=== PATIENT | male | born 1940 | race Caucasian/White ===

== ENCOUNTER 2024-11-24 07:30 | Day surgery (SDC) | payer MEDICARE, OTHER, SELFPAY ==
[2024-11-23 10:25] VITALS: BMI 23.1
[2024-11-24] VITALS (27 sets, daily range): BP systolic 76–146; BP diastolic 43–115
--- NOTE | 2024-11-24 14:31 | ITS.CL.ABL ---
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
Ablation
Procedure Report:
AFIB / A flutter ablation:
Mr. Diaz is a very pleasant 84 yr old gentleman with medical history significant for symptomatic persistent atrial fibrillation and atrial flutter is here in the EP lab for atrial fibrillation / flutter ablation
Date of Procedure:
11/24/2024
Indications:
Symptomatic persistent atrial fibrillation / atrial flutter
Pre-Operative Diagnosis:
Persistent atrial fibrillation / atrial flutter
Post-Operative Diagnosis:
Persistent atrial fibrillation / atrial flutter
Procedure Performed:
Atrial fibrillation ablation with wide area circumferential ablation (WACA) approach for pulmonary vein isolation
Posterior wall isolation
Roof dependent atrial flutter ablation.
Atrial flutter ablation with cavo-tricuspid isthmus line block formation
Performing Physician:
Vandana Mlutani MD
Assistants:
EP staff
Anesthesia:
See anesthesia records
Detailed Description of the Procedure:
Written informed consent was obtained from the patient after a full explanation of the risks and benefits of the procedure including the risks of sedation and anesthesia.
The patient was brought to the electrophysiology laboratory in stable condition in fasting state. Continuous electrocardiographic and hemodynamic monitoring was initiated.
The initial rhythm was atrial flutter.
The procedure site was meticulously prepared with surgical scrub and allowed to dry with no pooling. Sterile draping was applied to cover the procedure site. The image intensifier was draped with sterile bag and positioned over the patient. After
infusion of local anesthetic, vascular access was obtained under ultrasound guidance and sheaths were placed over guide wire as detailed below.
The images of the ultrasound of the femoral vessels were stored in patient chart.
Sheath and Catheter Placement:
In the right femoral vein, an 8-Albanian sheath was placed under ultrasound guidance for use during the ablation procedure. And mapping catheter was intermittently placed in the high right atrium, right ventricle, left atrium and left ventricle. In
the left femoral vein, a 9-Fr long sheath was placed for use during intracardiac echo procedure.
The sheaths were upgraded as needed during the case. Intracardiac catheters were positioned using direct fluoroscopic guidance.� ICE catheter was placed in RA. The following catheters / sheaths were placed
Sheaths:
��������� Agilis sheath in right femoral vein upgraded from 8Fr in right femoral vein
��������� 9Fr in left femoral vein
��������� 7Fr in right femoral vein
Catheters:
��������� The Affera Sphere 9 catheter -bidirectional D/F� - at locations of HRA, RV, LA and LV.
��������� ICE catheter -AccuNav -� at locations of RA, SVC, and RV.
��������� Bard decapolar catheter � RA and CS
Heparin was initiated after the access was obtained.
Intracardiac ECHO:
An 8-Albanian AcuNav intracardiac ECHO (ICE) probe was advanced through the 9-Albanian sheath in the left femoral vein into the right atrium under fluoroscopic and ICE ultrasound image guidance and a baseline ECHO study was performed. The left atrial
size was dilated. There was trace tricuspid regurgitation. The aortic valve was grossly normal. There was normal left ventricular size and function. There is a trace pericardial effusion. The JENNY has baseline low velocities. The pulmonary had good
flow identified.
During the procedure, ICE was used for monitoring of complications, guidance of trans-septal puncture, monitor the catheter position and tracking ablation lesions. No change in the pericardial space noted throughout the procedure.
Electroanatomic mapping of the right atrium:
A J-tipped guidewire was advanced through the 8-Albanian sheath in the right femoral vein into the superior vena cava under fluoroscopic and ICE guidance. The 8-Albanian sheath was exchanged for an Agilis sheath which was advanced into the superior vena
cava.
Using the Sphere 9 Affera catheter advanced through Agilis sheath into the right atrium, an electroanatomic map (EAM) of the right atrium was created using the [employer]� mapping system with [employer]-1 software mapping system.
There was borderline long HV conduction noted at baseline at 68 ms.
Ablation # 1: Typical Atrial Flutter Ablation:
The flutter was mapped and was noted concentric in the CS. The RA was mapped in atrial flutter that showed typical counter clock cardenas CTI dependent atrial flutter.
The CTI ablation was done using radiofrequency with Affera sphere -9 ablation, open irrigation, force-sensing bidirectional ablation catheter in the cavotricuspid isthmus from the tricuspid annulus to the IVC ridge. �Once the ablation catheter reach
near the IVC, the ablation energy was changed to pulsefield.
��������������� -Bidirectional block was confirmed across the CTI line with differential pacing.
��������������� -Double potentials were spaced greater than 98 msec apart.
��������������� -The conduction time across the CTI line from proximal CS pacing was 158 msec.
��������������� -EAM of the right atrium was obtained with coronary sinus pacing and showed a line of block at the CTI.
��������������� -The time interval just lateral to the ablation lesions was 158 msec and the lateral wall was 112 msec
��������������� - All these maneuvers confirmed the block at the CTI line.
- Post ablation HV interval was unchanged at 45msec
Then attention was given to atrial fibrillation ablation.
Trans-septal Puncture:
Heparin was initiated and infused to maintain appropriate ACT. A J-tipped guidewire was advanced through into the superior vena cava under fluoroscopic and ICE guidance. The Agilis sheath was advanced into the superior vena cava. An Ac[employer]Cross
transseptal access system was utilized to perform the trans-septal puncture. The apparatus was withdrawn until it was in contact with the fossa ovalis. The position was adjusted based on fluoroscopy and ultrasound images from ICE. Under
fluoroscopic, hemodynamic and ICE ultrasound guidance, left atrium was cannulated by advancing the needle. Once atrial septum was cannulated, the needle was pulled back and the guide wire was advanced through the needle into the left atrium. The
guide wire was advanced into the left superior pulmonary vein. Both the sheath and the dilator was advanced into the left atrium. The dilator with the needle was withdrawn. Blood was aspirated from the Agilis sheath and arterial blood confirmed. The
sheath was flushed. Saline injection noted into the left atrium on ICE. The waveform of the LA pressure was recorded. The mapping catheter was advanced in the Agilis sheath into the left pulmonary vein.
Of note, the atrial septum was quite thick and fibrous making the sheath delivery to the LA quite challenging.
3D Electroanatomic Mapping:
Using the Sphere 9 Affera catheter advanced through Agilis sheath into the left atrium, an electroanatomic map (EAM) of the left atrium was created using [employer]� mapping system with Connected software. The map was used for localization of catheter
position and tacking of ablation lesions. The EAM of the left atrium showed a total of 4 PVs with two left and the two right sided pulmonary veins with all electrically connected to the body the LA. It showed scattered scar on the posterior wall of
the LA. The LA was severely dilated in size.
Following the EAM, preparation were made for ablation.
Ablation:
Ablation # 2: Pulmonary vein Isolation:
Pulsed field ablation was performed using an open irrigation, bidirectional, contact sensing, dual energy ablation catheter (Affera sphere -9) by completing the circumferential lesions around the left and right pulmonary veins achieving pulmonary
vein isolation.
Confirmation of the PVI and bidirectional block:
Following achievement of entrance block at the pulmonary veins, pacing from the Sphere 9 affera catheter in each of the four veins at 20 milliamps for 4 milliseconds showed entrance and exit block.
Ablation # 3: Roof line Formation:
There was a clear channel of electrical activity left in the posterior wall with multiple CFAE and AF areas on the roof and ablation in that area increased the risk of atrial flutter and decision was made to create a roof line to block a slow
conduction. A set of pulsed field ablations were placed on the roof line connecting the left superior pulmonary vein ablation lesions to the right superior pulmonary vein lesions rings.
Ablation # 3: Posterior wall isolation with the Box lesions set Formation:
There was a significant fractionation seen in the posterior wall and LA AF foci along with CFAE made it clear as the posterior wall is critical in maintaining the atrial fibrillation and the decision was made to isolate the posterior wall by
creating a �Box� lesions.
A set of Pulsed field ablations were placed on the floor line connecting the left inferior pulmonary vein ablation lesions to the right inferior pulmonary vein lesions rings.
The sphere 9 in the posterior wall showed entrance block and the pacing from the posterior wall showed no exit from the box lesions confirming the exit block.
Ablation # 4: Posterior wall ablation:
With the box lesion created and block confirmed, the decision was made to ablate the posterior wall severing epicardial connections and decision was made to create the Y ablation on the posterior wall.
A series of ablations were placed connecting the junction of left superior pulmonary vein and the roof line to the junction of right inferior pulmonary vein and the floor line ablating the ganglion plexi next to both antra.
EP study:
Sinus Node Function: The sinus node functions are within acceptable normal range.
Atrioventricular Isela Function: �Post ablation HV interval was unchanged at 68 msec
Procedure End
ICE study was done again that showed no epicardial accumulation. No complications noted.
Following the completion of the EP study, catheters were removed. Protamine 30 mg was given at the end of the procedure and ACT was checked repeatedly. The sheaths were removed and hemostasis achieved with VASCADE and manual compression after
acceptable ACT is achieved.
Left atrial Pressure:
Pre-Procedure: Mean LA pressure was 21mmHg
Post-Procedure: Mean LA pressure was 19mmHg
Post-Procedure: Mean RA pressure was 14mmHg
Fluoro Time:
3.8min / 6.7mGy
Estimated Blood loss:
<10 cc
Specimens Removed:
None.
Implants / Devices:
None
Urine output:
None
Packs / Drains/ Tubes:
None
Instrument / Sponge Count Correct:
Yes
Complications of the Procedure:
None
Condition of Patient at Time of Transfer:
Hemodynamically stable with no neurological or vascular compromise.
Summary:
��������� Successful atrial fibrillation ablation with circumferential bidirectional line of block at pulmonary venin antra (Pulmonary vein isolation), atrial flutter ablation with cavo-tricuspid isthmus line block formation, roof flutter line
creation, Posterior wall isolation.
Figures from the Procedure:
Figure 1: The electroanatomic mapping (EAM) of the left atrium with bipolar voltage (purple indicates normal electrical activity with red as no myocardial muscle electric activity indicating a line of block or scar.
--- NOTE | 2024-11-24 16:42 | W.PN.UPDATE ---
Update Note
Progress Note Update
84 WM s/p PVI (same day) He denies cp, sob, sam diet, voiding, amb w/o dizziness, BP on soft side post procedure improved with ambulation MAP >65, EKG SB, R fem c/d/i VASCADE, soft. He will resume Eliquis tonight at 8pm. Activity restrictions
reviewed. He will continue metoprolol. He will f/u ACCOUNTING SYSTEM EXPERT in 2 weeks. He is for d/c home after 5pm if groin stable.
[2024-11-25 12:42] LABS: ACT-LR - POC 382 Seconds (116-155)
[2024-11-25 12:42] LABS: ACT-LR - POC 363 Seconds (116-155)
[2024-11-25 12:42] LABS: ACT-LR - POC 376 Seconds (116-155)
== END 2024-11-24 17:30 | disposition home or self-care (01) ==
LOC: CATH 07:30
PROVIDERS: ATTENDING PHYSICIAN Internal Medicine Cardiovascular Disease; FAMILY PHYSICIAN Internal Medicine; OTHER PHYSICIAN Internal Medicine Cardiovascular Disease
DX: I48.19 Other persistent atrial fibrillation (principal); I48.3 Typical atrial flutter; Z79.01 Long term (current) use of anticoagulants
CPT/HCPCS: 93656; 93655; 93657; C1760; C1894; C1730; C1766; C1892; C1759; 85347; 86900; 86901; 93005; C1733

== ENCOUNTER 2024-11-26 13:00 | Inpatient (IN) | payer MEDICARE, OTHER, SELFPAY ==
[2024-11-26] VITALS (9 sets, daily range): BP systolic 97–127; BP diastolic 50–90; BMI 22.4; BMI 21.0
--- NOTE | 2024-11-26 08:48 | ED.GENMED ---
History of Present Illness
General
Chief Complaint: Breathing Problem
Source: patient
Exam Limitations: none
Time Seen by Provider: 11/26/24 08:18
Nursing documentation reviewed up to this point in time: agreed with
History of Present Illness
History of Present Illness:
84 y/o M
h/o afib on eliquis
had ablation on 11/[address] linder
subsequently was sinus fidel 50s
on metoprolol
resumed eliquis
here for dyspnea which started yesterday evening
didn't sleep well due to sob
a little chest pressure this am
mild dry cough
no fever/chills, vomiting, peuritic pain, syncope, wekanses, leg swelling
Past History
Past History
ED Past Medical History: Arrthythmia
Social History
Tobacco: Non-smoker
Alcohol: None
Drug: None
Personal:
Review of Systems
Review of Systems
Allergies reviewed?: Yes
All Other Systems: Not applicable
Phy Exam
Physical Exam
Physical Exam:
GENERAL: Alert , in no apparent distress
EYE: pupils equal and reactive
NECK: Supple
ENT: o/p clr, mmm.
CARDIAC: bradycardic, no sig edema
LUNGS: mild tachypnea, some faint end exp wheezes throughout; no resp distress
ABDOMEN: Soft, without focal tenderness, no r/g, no cvat, normal bowel sounds
NEUROLOGICAL: Alert and oriented, no focal neuro deficits
SKIN: Warm and dry, skin intact.
MUSCULOSKELETAL: No edema, well perfused. neg rosey's sign
PSYCH: Normal and appropriate interaction.
Scores
Heart Failure Risk
Heart Failure Risk Score: Not Applicable
Course
Orders/Labs/Results
Orders:
Orders
11/26/24 07:28
Electrocardiogram (*1) Urgent
Reason for Study: Shortness of Breath
EKG- Treatment ONCE
11/26/24 08:46
Albuterol Nebs [Ventolin Nebules] 2.5 mg INH R NOW STA
11/26/24 08:47
CR Chest - 2 Views Urgent
Comment:
Reason For Exam: wheezing, recent ablation
11/26/24 08:54
COVID-19 Antigen Urgent
Source: Nasal Swab
Complete Blood Count/With Diff Urgent
Comprehensive Metabolic Panel Urgent
Magnesium Urgent
NT-proBNP Urgent
Troponin I Urgent
Influenza A+B Rapid Molecular Urgent
DONITA Source: Nasal Swab
Specimen Description:
11/26/24 Lunch
Cholesterol Lowering
At Your Request: Full Participation
11/26/24 10:18
Echo 2D MMode Color/Doppler Routine
Reason for Study: SOB, recent ablation
11/26/24 10:35
Furosemide [Lasix] 20 mg IV NOW STA
11/26/24 11:45
Apixaban [Eliquis] 5 mg PO BID
11/26/24 12:16
CT Chest PE Study Urgent
Comment:
Reason For Exam: r/o PE, dyspnea, RV strain
11/26/24 12:32
Admit/Transfer Patient As Directed
Co-Sign Provider:
Level of Care: Inpatient admission
Assign to:: Telemetry
Physician / Group: Haney
Diagnosis: Possible CHF
Reason for Telemetry: Acute Heart Failure
Date to Stop Telemetry: 11/29/24
Time to Stop Telemetry: 11:00
Reason for Hospitalization: see progress note
Expected length of stay greater than two midnights?: Yes
ELOS- Estimated Length of Stay in days: 3
I certify the patient meets the requirements for IP care: Yes
PRN Pain Medication Management As Directed
May give lesser potent ordered pain med per pt: Yes
preference::
Protocol:: Medication orders for pain may be administered in a
manner that supports deferring to patient preference
when the pt is:
- Requesting an ordered lesser potent pain medication.
Least to most potent pain medications are defined
as: acetaminophen < NSAID < tramadol < opioids
(morphine, oxycodone, hydromorphone).
- Requesting a lesser dose of the same medication IF
ORDERED.
- Requesting a less intrusive route of administration
if both routes are prescribed by the provider (PO <
IV).
11/26/24 12:33
Code Status As Directed
Resuscitation Status: Full Code
11/26/24 13:34
Acetaminophen [Tylenol] 650 mg PO Q4HPRN PRN
11/26/24 13:34
CARDIOLOGY CONSULT Routine
Consulting Provider: Yadiel Rodrigues
Was physician already notified: Yes
Reason for consult: CHF
Activity As Directed
Activity Level: As Tolerated
I&O [Intake/ Output] As Directed
Frequency: q12h
11/26/24 13:59
Troponin I Q6H
11/26/24 14:00
Magnesium Oxide 250 mg PO DAILY
11/26/24 16:00
Furosemide [Lasix] 20 mg IV BID AT 0800,1600
11/26/24 19:34
Troponin I Q6H
11/26/24 20:00
Metoprolol Xl [Toprol Xl] 50 mg PO BID
11/27/24 06:00
BMP [Basic Metabolic Panel] IN AM
11/29/24 11:00
DC Protocol for Telemetry ONCE
Abnormal Lab Results
11/26/24
08:54
RBC 3.88 L 10^6/uL
(4.70-6.10)
MCV 102.3 H fL
(80.0-94.0)
MCH 34.5 H pg
(27.0-31.0)
RDW 14.6 H %
(11.5-14.5)
MPV 11.3 H fL
(7.4-10.4)
Absolute Monos (auto) 0.8 H 10^3/uL
(0.1-0.6)
Lymphocytes % 17.8 L %
(20.5-51.1)
Monocytes % 10.7 H %
(1.7-9.3)
Potassium 5.4 H mmol/L
(3.5-5.1)
BUN 42 H mg/dl
(9-20)
Glucose 104 H mg/dl
(70-99)
Total Bilirubin 1.5 H mg/dl
(0.2-1.3)
AST 89 H U/L
(17-59)
ALT 159 H U/L
(0-50)
Troponin I 1.650 H* ng/ml
Total Protein 6.2 L g/dl
(6.3-8.2)
11/26/24 08:54
11/26/24 08:54
Vital Signs
Initial and Last Documented VS:
Initial Vital Signs
Pulse Resp BP Pulse Ox
61 20 127/76 93
11/26/24 07:29 11/26/24 07:29 11/26/24 07:29 11/26/24 07:29
Last Documented Vital Signs
Temp Pulse Resp BP Pulse Ox
36.5 C 55 18 121/70 96
11/26/24 13:42 11/26/24 13:42 11/26/24 13:42 11/26/24 13:42 11/26/24 13:42
MDM/Problems Addressed
Differential Diagnosis Includes:
chf, pneumonia, copd, flu, covid, pericardial effusion
MDM/Problems Addressed:
h/o afib on eliquis
had ablation by dr. linder on 11/24; subseqeutnly with sinus bradycardia, on metoprolol
says he was well on 11/25. until the evening when he started feeling dypsneic and now has conversational dyspnea; he is not hypoxic; developed some mild L sided chestp ressure this morning
bp 110/60, hr 50s, pulse ox 95%
sounds like some mild wheezing throughout
no significant edema
ekg shows chronic t wave inv v2, v3 stable
trop (which i'm aware would be elevated becuase of his ablation but ordered due to cp,) is 1.6
i think his cxr looks like copd with mild pleural effusion
bnp 2500
will give small dose lasix
spoke with cards who will order echo
admit medicine
*Critical Care Note
Total Time (30-74mins, 75-104mins- exclusive of procedures): Not Applicable
ED Attending Note
-
Portions of this chart may have been created with voice recognition software.� Occasional wrong word or��sound alike� substitutions may have occurred due to the inherent limitations of voice recognition software.
Discharge Plan
Departure
Patient Disposition: Admit
Date of Disposition: 11/26/24
Time of Disposition: 10:23
Admit to: Telemetry
Presentation/result/management discussed w/ accepting MD/DO: Hospitalist
Condition: Fair
Covid-19: Not Applicable
Discharge Problem:
CHF (congestive heart failure)
Interventions
Interventions:
*Risk Screen - Suicide Last Done: 11/26/24 07:29
*General Assessment Last Done: 11/26/24 07:29
*Neglect/Abuse Screening Last Done: 11/26/24 07:29
*ED COVID-19 Vaccine History Last Done: 11/26/24 08:52
*Nursing Disposition Last Done: 11/26/24 13:29
ED- Cardiac Assessment Last Done: 11/26/24 09:16
ED- Pulmonary Assessment Last Done: 11/26/24 09:17
Discharge Date and Time
Discharge Date/Time: 11/26/24 13:56
[2024-11-26 09:21] LABS: % Basophils 0.1 % (0-2); % Eosinophils 0.8 % (0-6); % Immature Granulocytes 0.3 % (0-0.5); % Lymphocytes 17.8 % (20.5-51.1); % Monocytes 10.7 % (1.7-9.3); % Neutrophils 70.3 % (42.2-75.2); Absolute Eosinophils 0.1 10^3/uL (0-0.7); Absolute Lymphocytes 1.3 10^3/uL (1.2-3.4); Absolute Monocytes 0.8 10^3/uL (0.1-0.6); Absolute Neutrophils 5.2 10^3/uL (1.4-6.5); Hematocrit 39.7 % (39.0-52.0); Hemoglobin 13.4 g/dL (13.0-18.0); Mean Corp Hgb Conc. 33.8 g/dL (33.0-37.0); Mean Corpuscular Hgb 34.5 pg (27.0-31.0); Mean Corpuscular Volume 102.3 fL (80.0-94.0); Mean Platelet Volume 11.3 fL (7.4-10.4); Nucleated Red Blood Cells % 0 % (-); Platelet Count 139 10^3/uL (130-400); Red Blood Cell Count 3.88 10^6/uL (4.70-6.10); Red Cell Dist. Width 14.6 % (11.5-14.5); White Blood Cell Count 7.4 10^3/uL (4.8-10.8)
[2024-11-26 09:31] LABS: ALT (SGPT) 159 U/L (0-50); AST (SGOT) 89 U/L (17-59); Albumin 3.9 g/dl (3.5-5.0); Alkaline Phosphatase 86 U/L (38-126); Blood Urea Nitrogen 42 mg/dl (9-20); Calcium 8.6 mg/dl (8.4-10.2); Carbon Dioxide 25 mmol/L (22-30); Chloride 103 mmol/L (98-107); Estimated Creatinine Clearance 53 ml/min; Glucose 104 mg/dl (70-99); Magnesium 2.2 mg/dl (1.6-2.3); Potassium 5.4 mmol/L (3.5-5.1); Sodium 137 mmol/L (135-145); Total Bilirubin 1.5 mg/dl (0.2-1.3); Total Protein 6.2 g/dl (6.3-8.2); eGFR > 60.00
[2024-11-26 09:45] LABS: COVID-19 Antigen Negative (Negative)
[2024-11-26 10:17] LABS: NT-proBNP 2500 pg/ml
[2024-11-26] MEDS: VENTOLIN NEBULES 2.5 MG INH (10:20)
--- NOTE | 2024-11-26 10:41 | CON.CAR ---
Addendum entered and electronically signed by Yadiel Rodrigues MD 11/26/24 12:32:
84 yo male with PMH of atrial fibrillation and flutter, s/p ablation of both 11/24/23, mild/moderate AR presents to ED with SOB. No chest pain. He did receive 1250 of IV fluids on 11/24 post ablation. Exam with RRR, II/ systolic murmur at apex,
trace LE edema. Cr 1.1. EKG: SB, anterior TWI, which are improved from prior.
Echo shows EF 40-45%, mild/mod MR, moderate AR, dilated RV with decreased RV function, mod TR, PASP 45. Prior echo report from [facility]: EF 52%, mild/mod AR, dilated RV with nl fx and PASP 25.
Given RV findings, patient is undergoing CT PE protocol.
We will treat for volume overload/acute HFrEF with IV lasix. Cardiomyopathy may be tachy induced from A fib.
Continue Toprol XL and eliquis. Patient prefers minimal med, so will see what other GDMT he will allow.
Original Note:
Consultation
Consultation Request
Date/Time Consultation Requested: 11/26/23 1000
Date/Time Consultation Performed: 11/26/23 1020
Requesting Provider: Shirin Reyes
Performing Provider: Leatha GUTIERREZ for Dr. Rodrigues
Reason for Consultation: SOB, recent ablation
Medical History
-
Chief Complaint: SOB
History of Present Illness:
84 y/o male (patient of Dr. Meyers) with mild to moderate AR, and atrial flutter and atrial fibrillation on Eliquis s/p ablation 11/24/[address] Multani who is here for SOB that started yesterday, worse with exertion and laying. There has also been
some wheezing. BNP 2500. CXR suggestive of COPD. Potassium elevated in ER, as are LFT's. EKG is stable SB with anterior T wave inversions. He received 1250 of IVF on day of ablation.
Past Medical History
Past Medical History: Arrhythmias and Valvular Disease
Social History
Tobacco: Non-Smoker
Alcohol: None
Personal:
Living: With Family
Family History
Family History: Reviewed & Not Pertinent
Allergies / Home Medications
Allergy/AdvReac Type Severity Reaction Status Date / Time
mepivacaine Allergy Rash Verified 11/26/24 07:29
�Medication �Instructions �Recorded �Confirmed �Type
apixaban 5 mg tablet (Eliquis) 5 mg PO BID 11/24/24 11/26/24 History
ascorbic acid (vitamin C) 500 mg 500 mg PO DAILY 11/24/24 11/26/24 History
tablet (Vitamin C)
cholecalciferol (vitamin D3) 25 50 mcg PO DAILY 11/24/24 11/26/24 History
mcg (1,000 unit) capsule (Vitamin
D3)
cyanocobalamin (vitamin B-12) 1,000 mcg PO DAILY 11/24/24 11/26/24 History
1,000 mcg tablet (Vitamin B-12)
fish, borage, flaxseed oils-omega 1 cap PO DAILY 11/24/24 11/26/24 History
3,6,9 comb no.1 1,200 mg capsule
(Henrietta 3-6-9)
glucosam-sod chondro-vit C-matti 1 tab PO DAILY 11/24/24 11/26/24 History
tablet
magnesium 250 mg tablet 250 mg PO DAILY 11/24/24 11/26/24 History
metoprolol succinate 50 mg 50 mg PO BID 11/24/24 11/26/24 History
tablet,extended release 24 hr
vitamin B complex 1 tab PO DAILY 11/24/24 11/26/24 History
zinc acetate 50 mg (zinc) capsule 50 mg PO DAILY 11/24/24 11/26/24 History
Review of Systems
-
History Source: Patient
All other systems: Negative unless noted
Respiratory: Trouble Breathing
Physical Exam
Vital Signs
Pulse Resp BP Pulse Ox
51 18 107/65 98
11/26/24 09:00 11/26/24 09:00 11/26/24 09:00 11/26/24 09:17
Lab Results
11/26/24 08:54
11/26/24 08:54
Troponin I 1.650 ng/ml H* 11/26/24 08:54
Jyx-B-Mktemjjcjlm Pept 2500 pg/ml 11/26/24 08:54
Physical Exam
General: Well Developed, Well Nourished and No Apparent Distress
HEENT: Normocephalic and Anicteric
Respiratory: Crackles (left base, expiratory wheezing is scattered throughout)
Cardiac: Regular Rhythm (SB)
Musculoskeletal: No Edema
Skin: Warm and Dry
Neuro: AO x 3
Psych: Calm
Impression / Plan
-
SOB:
-check echo now to r/o effusion
-given breathing tx in ER- he thinks that helped. There is still some expiratory wheezing. CXR suggestive COPD. He denies smoking or smoking history.
-weight up 2 kgs since Saturday and he did received 1250 fluids on day of ablation, so may be mildly volume overloaded in this setting. BNP elevated. Lasix is ordered pending echo. Agree with lasix, which requires intensive monitoring. Monitor
response.
Acute, non-ischemic myocardial injury in setting of recent cardiac procedure (ablation):
-can trend, also checking echo now
-no CP
Hyperkalemia:
-monitor closely- Lasix ordered by ER provider
AFIB (persistent)/flutter (typical):
-stable in SR/SB s/p ablation
-continue metoprolol and Eliquis
AR:
-mild to moderate
-monitor over time by echo
Elevated LFT's:
-were elevated on ablation day as well
-denies ETOH use
Data Reviewed
-
EKG: Tracing Personally Visualized and interpreted (EKG: SB with ST/T abnormality (anterior))
Radiology: Report Reviewed by me (CXR: COPD. No superimposed acute abnormalities)
Medical Tests (Nuc Med, Echo etc): Report Reviewed by me (Echocardiogram report 09/22/2024 LVEF 52%, mild biatrial enlargement, mild-mod AR, mild MR/TR PASP estimated 25 and estimated RA 3.)
Labs: Labs Reviewed by me
[2024-11-26] MEDS: LASIX 20 MG IV ×2 (11:57→17:11)
--- NOTE | 2024-11-26 12:51 | HPS.HSE ---
Family Physician
-
Family Physician: Evan Schwarz
Chief Complaint
-
Shortness of breath
History of Present Illness
Patient had cardiac ablation for A-fib/flutter on 11/28/2024 and was discharged home.
Since discharge he started to feel short of breath. Progressive in nature since discharge. It was initially exertional now he was feeling even at rest. He had some orthopnea. Is not sure what his baseline weight is,His today's weight is 165
pounds. He did not see leg swelling. No prior history of heart failure.
He did feel some palpitations.
heard some wheeze yesterday.
Non-smoker. Denies prior history of asthma, COPD or emphysema. No cough. No sore throat. No fever or chills. No recent respiratory symptoms.
Medical History
Past Medical History
Past Medical History: Reports Arrhythmia (History of A-fib/a flutter status post ablation)
Past Surgical History: Reports Other (Cardiac ablation)
Social History
Tobacco: Non-smoker
Alcohol: None
Drug: None
Personal:
Living: With Family
Family History
Family History: Not pertinent
Allergies / Home Medications
Allergies reflects when Allergies were last updated in [employer].
Home Medications with original date entered in [employer]
Allergy/Medication List:
Allergies
Allergy/AdvReac Type Severity Reaction Status Date / Time
mepivacaine Allergy Rash Verified 11/26/24 07:29
Home Medications
apixaban 5 mg tablet (Eliquis) 5 mg PO BID 11/24/24
ascorbic acid (vitamin C) 500 mg tablet (Vitamin C) 500 mg PO DAILY 11/24/24
cholecalciferol (vitamin D3) 25 mcg (1,000 unit) capsule (Vitamin D3) 50 mcg PO DAILY 11/24/24
cyanocobalamin (vitamin B-12) 1,000 mcg tablet (Vitamin B-12) 1,000 mcg PO DAILY 11/24/24
fish, borage, flaxseed oils-omega 3,6,9 comb no.1 1,200 mg capsule ([place] 3-6-9) 1 cap PO DAILY 11/24/24
glucosam-sod chondro-vit C-matti tablet 1 tab PO DAILY 11/24/24
magnesium 250 mg tablet 250 mg PO DAILY 11/24/24
metoprolol succinate 50 mg tablet,extended release 24 hr 50 mg PO BID 11/24/24
vitamin B complex 1 tab PO DAILY 11/24/24
zinc acetate 50 mg (zinc) capsule 50 mg PO DAILY 11/24/24
Review of Systems
-
A 12 point ROS was completed and negative except as noted: Yes
Physical Exam
Vital Signs
Vital Signs
Pulse Resp BP Pulse Ox
54 22 106/90 98
11/26/24 12:46 11/26/24 12:30 11/26/24 12:02 11/26/24 12:00
Physical Exam
General: Comfortable (At rest)
HEENT: Moist mucous membranes
Respiratory: Crackles (Bibasal) and Non Labored Respirations; No Wheezes or Accessory Resp Muscle Use
Cardiac: S1/S2 and Regular Rhythm; No Tachycardia or JVD
GI: Soft, Non Tender, Non Distended and Normal Bowel Sounds
Musculoskeletal: No Edema
Neuro: AO x 3
Psych: Calm; No Confused
Laboratory Results
-
11/26/24 08:54
11/26/24 08:54
Laboratory Results
Total Bilirubin 1.5 mg/dl (0.2-1.3) H 11/26/24 08:54
AST 89 U/L (17-59) H 11/26/24 08:54
ALT 159 U/L (0-50) H 11/26/24 08:54
Alkaline Phosphatase 86 U/L (38-126) 11/26/24 08:54
Troponin I 1.650 ng/ml H* 11/26/24 08:54
Data Reviewed
-
Medical Tests (Nuc Med, Echo, EKG etc): Report Reviewed by me (ECHO)
Lab Data: Labs Reviewed by me
Impression/Plan
-
Acute shortness of breath posterior cardiac ablation-concern for possible acute CHF decompensation
Patient presented with shortness of breath, some orthopnea, elevated BNP, and bibasilar crackles all concerning for acute CHF decompensation. Not hypoxic at the current time. Hemodynamically stable. In sinus rhythm. Nonspecific ST-T changes but
when compared to 11/24 no significant changes found on EKG. Chest x-ray not suggestive of CHF.
Echo done in the ER shows EF of 40 to 45% which is mild/moderately reduced, global hypokinesis, moderate AR, stage II diastolic dysfunction. It also shows enlarged right ventricular size and reduced right ventricular systolic function and moderate
TR. Patient was without his Eliquis periprocedure. Will get an CT chest PE study to rule out any thromboembolic disease.
Admit to telemetry
Start on IV diuretics and follow his symptom progress.
Trend troponins. Suspect abnormal troponin is related to recent cardiac ablation.No CP.
History of A-fib/a flutter status post ablation-sinus rhythm-continue with Eliquis and metoprolol.
Full code
[2024-11-26] MEDS: ELIQUIS 5 MG PO ×2 (13:02→20:59)
[2024-11-26] MEDS: MAGNESIUM OXIDE 250 MG PO (15:31)
[2024-11-26] MEDS: MIRALAX 17 GRAMS PO (18:00)
--- NOTE | 2024-11-26 18:17 | PTCARENOTE ---
Patient admitted from ER into room 402-01. Vital signs stable. No complaints. Oriented to room, use of call morales and bed and TV controls. Patient verbalizes understanding of teaching and denies questions at this time.
[2024-11-26] MEDS: TOPROL XL 50 MG PO (20:59)
[2024-11-27] VITALS (8 sets, daily range): BP systolic 102–124; BP diastolic 57–70; PULSE 54; O2SAT 100; BMI 20.4
[2024-11-27] MEDS: ELIQUIS 5 MG PO ×2 (07:46→20:11)
[2024-11-27] MEDS: LASIX 20 MG IV ×2 (07:47→16:05)
[2024-11-27] MEDS: TOPROL XL 50 MG PO (07:48)
[2024-11-27] MEDS: MAGNESIUM OXIDE 250 MG PO (07:48)
[2024-11-27] MEDS: MIRALAX 17 GRAMS PO (08:41)
[2024-11-27 09:12] LABS: ALT (SGPT) 128 U/L (0-50); AST (SGOT) 60 U/L (17-59); Albumin 4.2 g/dl (3.5-5.0); Alkaline Phosphatase 95 U/L (38-126); Blood Urea Nitrogen 36 mg/dl (9-20); Calcium 8.8 mg/dl (8.4-10.2); Carbon Dioxide 24 mmol/L (22-30); Chloride 102 mmol/L (98-107); Direct Bilirubin 0.2 mg/dl (0.0-0.4); Estimated Creatinine Clearance 61 ml/min; Glucose 113 mg/dl (70-99); Sodium 138 mmol/L (135-145); Total Bilirubin 1.8 mg/dl (0.2-1.3); Total Protein 6.7 g/dl (6.3-8.2); eGFR > 60.00
[2024-11-27 09:23] LABS: Procalcitonin 0.05 ng/ml (0.0-0.25)
[2024-11-27 09:30] LABS: Potassium 4.3 mmol/L (3.5-5.1)
--- NOTE | 2024-11-27 10:02 | W.PN.CD ---
Today's Communication / Plan
-
continue IV lasix
hold Toprol XL
trend tele
Impression / Plan
-
Acute on chronic HFrEF
-continue lasix 20mg IV bid, with close monitoring of labs and tele
Cardiomyopathy, EF 40-45%, with RV dysfunction
-suspected tachy induced from A fib, and is now s/p ablation 11/24/23
-Prior echo report from [facility] 09/22/24: EF 52%, mild/mod AR, dilated RV with nl fx and PASP 25.
-he prefers minimal meds, and would like to focus on herbal supplements as much as possible
-holding Toprol XL due to bradycardia: will likely resume at lower dose tomorrow
Bradycardia, sinus
-hold Toprol XL, and likely resume at lower dose tomorrow
Valvular HD: mild/mod MR, moderate AR, moderate TR
-diuresis as above
Acute, non-ischemic myocardial injury in setting of recent cardiac procedure (ablation):
-no chest pain
AFIB (persistent)/flutter (typical):
-stable in SR/SB s/p ablation
-continue Eliquis
Physical Exam
Vital Signs/Labs
Vital Signs
Temp Pulse Resp BP Pulse Ox
97.6 F 52 20 124/70 100
11/27/24 07:10 11/27/24 07:47 11/27/24 07:10 11/27/24 07:47 11/27/24 07:10
11/26/24 11/27/24 11/28/24
06:59 06:59 06:59
Actual Weight 70.052 kg
11/26/24 08:54
11/27/24 08:43
Magnesium 2.2 mg/dl (1.6-2.3) 11/26/24 08:54
11/26/24
08:54
Ame-K-Cifmqpfkkxs Pept 2500
LAB Results
11/26/24 11/26/24 11/26/24
08:54 13:59 19:52
Troponin I 1.650 H* 1.680 H* 2.080 H*
11/27/24 11/27/24
01:06 08:43
Troponin I 3.060 H* D 1.750 H* D
Physical Exam
Constitutional: No acute distress
EENT: Moist mucous membranes
Cardiovascular: Rhythm & rate is regular, Pedal edema present, JVD present and Systolic murmur present
Respiratory: Respiratory effort normal
Neuro/Psych: AO x 3
Data Reviewed
-
Date of Service: November 27, 2024
EKG: Other (Tele: SB 40s-50s)
Labs: Labs Reviewed by me
--- NOTE | 2024-11-27 11:01 | W.PN.HOSP.TC ---
Today's Communication/Plan
-
CW IV lasix
Follow LFTs
Assessment / Plan
Assessment / Plan
Acute shortness of breath posterior cardiac ablation-concern for possible acute CHF decompensation
Patient presented with shortness of breath, some orthopnea, elevated BNP, and bibasilar crackles all concerning for acute CHF decompensation. Not hypoxic at the current time. Hemodynamically stable. In sinus rhythm. Nonspecific ST-T changes but
when compared to 11/24 no significant changes found on EKG. Chest x-ray not suggestive of CHF.
Echo done in the ER shows EF of 40 to 45% which is mild/moderately reduced, global hypokinesis, moderate AR, stage II diastolic dysfunction. It also shows enlarged right ventricular size and reduced right ventricular systolic function and moderate
TR. Patient was without his Eliquis periprocedure. CT chest PE study neg for thromboembolic disease.
Wt improved
cw IV diuretics per cards
BL small pleural effusions associated with moderate interstitial airspace dz at basilar portions - clinically not acting like pneumonia . Afeb , normal WBC, no cough apart from PND and no recent respiratory symtoms . COVID/Flu swab neg. Follow
effusions with diuresis. Check Procal.
Abnormal LFTs - doubt hepatic . Hyperbilirubinemia which is mild is total and indirect? Possible Gilbert's. Alkaline phosphatase normal.
Mild transaminitis elevation-again patient without GI symptoms. Could be mirroring Trop elevation from cardiac muscle injury from ablation. Will follow for now
Abnormal troponins - unclear with the trend if it is related to recent cardiac ablation.No CP. Coming down now. Follow for now.
History of A-fib/a flutter status post ablation-sinus rhythm-continue with Eliquis and metoprolol.
Full code
Total time spent on today's encounter was 52 minutes which included time spent in counseling the patient/family regarding diagnosis and treatment plan as listed above, goals of care, and symptom management. Case was discussed with nursing staff,
specialists, and care coordinators/case management. All labs and imaging personally reviewed by me. Remainder the time spent in detailed review of previous records, lab data, imaging, and other medical provider documentation.
Anticipated Discharge: 24 - 48 hours
Subjective/Interval History
-
Date of Service: November 27, 2024
Feels still some shortness of breath.
No CP or palpitations.
Denies recent sore throat, fever, or respiratory infection. He says in the 2 weeks he had some postnasal drip which gives him cough.
No nausea vomiting.
Objective Data
-
Labs:
Laboratory Results
11/27/24
08:43
Sodium 138
Potassium 4.3
Chloride 102
Carbon Dioxide 24
BUN 36 H
Creatinine 0.9
Glucose 113 H
Calcium 8.8
Total Bilirubin 1.8 H
AST 60 H
ALT 128 H
Alkaline Phosphatase 95
Vital Signs:
Vital Signs
Temp Pulse Resp BP Pulse Ox
97.6 F 52 20 124/70 100
11/27/24 07:10 11/27/24 07:47 11/27/24 07:10 11/27/24 07:47 11/27/24 07:10
I&O
11/26/24 11/27/24 11/28/24
06:59 06:59 06:59
Intake Total 660 / 660 240 / 240
Output Total 1700 / 1700
Balance -1040 / -1040 240 / 240
Review of Systems
-
Constitutional: Denies Fever or Chills
EENT: Denies Sore Throat
Respiratory: Reports Cough (from PND)
Cardiac: Denies Chest Pain
Abdomen/GI: Denies Abdominal Pain, Nausea or Vomiting
Neuro: Denies Dizzy
Physical Exam
-
General: Comfortable
Respiratory: Crackles (Few in left basal area ) and Non Labored Respirations; Negative Wheezes or Accessory Resp Muscle Use
Cardiac: Regular Rhythm and S1/S2
GI: Soft
Musculoskeletal: No Edema
Neuro: AO x 3
Data Reviewed
-
Labs: Labs Reviewed by me
--- NOTE | 2024-11-27 16:30 | CM ---
Alert awake oriented patient who lives with his Lia who lives in a 2 story home with 1 step to enter and 14 steps to bed and bathroom. He is independent in driving and in all activities of daily living.He was offered VN he declined need.
[facility] VN hx / No SNF history
Pharmacy [facility]
PCP DR Schwarz
PLAN Home Declined VN
[2024-11-28 03:09] VITALS: BP 125/66
[2024-11-28 07:10] VITALS: BP 124/63
[2024-11-28 07:20] LABS: Hematocrit 34.8 % (39.0-52.0); Hemoglobin 11.7 g/dL (13.0-18.0); Mean Corp Hgb Conc. 33.6 g/dL (33.0-37.0); Mean Corpuscular Hgb 33.7 pg (27.0-31.0); Mean Corpuscular Volume 100.3 fL (80.0-94.0); Mean Platelet Volume 11.8 fL (7.4-10.4); Platelet Count 113 10^3/uL (130-400); Red Blood Cell Count 3.47 10^6/uL (4.70-6.10); White Blood Cell Count 5.4 10^3/uL (4.8-10.8)
[2024-11-28 07:58] LABS: ALT (SGPT) 97 U/L (0-50); AST (SGOT) 35 U/L (17-59); Albumin 3.5 g/dl (3.5-5.0); Alkaline Phosphatase 84 U/L (38-126); Blood Urea Nitrogen 34 mg/dl (9-20); Calcium 8.6 mg/dl (8.4-10.2); Carbon Dioxide 29 mmol/L (22-30); Chloride 100 mmol/L (98-107); Estimated Creatinine Clearance 59 ml/min; Glucose 93 mg/dl (70-99); Potassium 3.8 mmol/L (3.5-5.1); Sodium 138 mmol/L (135-145); Total Bilirubin 1.3 mg/dl (0.2-1.3); Total Protein 5.8 g/dl (6.3-8.2); eGFR > 60.00
--- NOTE | 2024-11-28 08:20 | W.PN.CD ---
Addendum entered and electronically signed by Yadiel Rodrigues MD 11/28/24 12:49:
84 yo male with PMH of persisent A fib on eliquis, s/p ablation 11/24/24. Admitted with acute HFrEF. IV fluids following ablation likely contributed. SOB and edema are better. Exam with fidel, regular rhythm, II/ systolic murmur at apex, and
trace edema. Cr 0.9. Tele: SB 40s.
Transition lasix to 20mg PO daily until office follow up. He reports he prefers supplements/herbal meds over prescription meds, and will likely take dandelion root. I advised that lasix is my recommendation.
Reduce Toprol XL to 25mg qHS due to bradycardia.
Continue eliquis 5mg bid.
He does not want any other meds for his cardiomyopathy. Hopefully, it is tachy induced from A fib and will be improved once we repeat echo as outpatient.
Discharge planning.
Original Note:
Today's Communication / Plan
-
He is asking to go home
He has no shortness of breath. I asked him to walk the halls and he did not appear dyspneic with ambulation.
Impression / Plan
-
IMPRESSION/PLAN: 84M with mild to moderate AR, and atrial flutter and atrial fibrillation on Eliquis s/p ablation 11/24/[address] Multani who is here for SOB that started the day prior to arrival. It was worse with exertion and he endorsed
orthopnea.
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
Acute on chronic HFrEF
-Presented with orthopnea, PLEITEZ, and a proBNP of 2500
-He already received a dose of furosemide 20 mg IV this morning, weight is down
-Trend daily weight, I's/O, and BMP with diuresis
-Heart failure education
Cardiomyopathy, EF 40-45% with RV dysfunction
-Suspected tachy induced from atrial arrhythmias, and is now s/p ablation 11/24/23
-Prior echo report from [facility] 09/22/24: EF 52%, mild/mod AR, dilated RV with nl fx and PASP 25.
-He prefers minimal medications, and would like to focus on herbal supplements as much as possible
-Holding Toprol XL due to bradycardia: will likely resume at lower dose tomorrow
Bradycardia, sinus
-Toprol-XL remains on hold
Valvular HD: mild/mod MR, moderate AR, moderate TR
-Diuresis as above
Acute, non-ischemic myocardial injury in setting of recent cardiac procedure (ablation):
-Denies chest pain
-Peak troponin 3.060 trended down
Persistent atrial fibrillation
Typical atrial flutter
-stable in SR/SB s/p ablation
-continue Eliquis
SUBJECTIVE:
Shortness of breath has resolved.
Physical Exam
Vital Signs/Labs
Vital Signs
Temp Pulse Resp BP Pulse Ox
98.1 F 49 18 124/63 100
11/28/24 07:10 11/28/24 07:10 11/28/24 07:10 11/28/24 07:10 11/28/24 07:10
11/27/24 11/28/24 11/29/24
06:59 06:59 06:59
Actual Weight 70.052 kg 68.634 kg
11/28/24 06:21
11/28/24 06:21
Magnesium 2.2 mg/dl (1.6-2.3) 11/26/24 08:54
11/26/24
08:54
Xgz-[id number]-Litjwrcsbyx Pept 2500
LAB Results
11/26/24 11/26/24 11/26/24
08:54 13:59 19:52
Troponin I 1.650 H* 1.680 H* 2.080 H*
11/27/24 11/27/24
01:06 08:43
Troponin I 3.060 H* D 1.750 H* D
Physical Exam
Constitutional: No acute distress and Comfortable
EENT: Moist mucous membranes
Cardiovascular: Rhythm & rate is regular, Pedal edema is absent and S1S2 is normal
Respiratory: Respiratory effort normal
GI: Soft, Distention absent, Non tender and Normal bowel sounds
Neuro/Psych: AO x 3
Other: Skin (Warm and dry without edema)
Data Reviewed
-
Date of Service: November 28, 2024
Labs: Labs Reviewed by me
[2024-11-28] MEDS: ELIQUIS 5 MG PO (10:07)
[2024-11-28] MEDS: MAGNESIUM OXIDE 250 MG PO (10:07)
[2024-11-28] MEDS: LASIX 20 MG IV (10:07)
[2024-11-28] MEDS: FLUSH (NSS) 1 FLUSH IV (10:08)
[2024-11-28] MEDS: MIRALAX PO (10:08)
[2024-11-28 11:36] VITALS: BP 107/58
--- NOTE | 2024-11-28 11:55 | W.PN.HOSP.TC ---
Today's Communication/Plan
-
DC
Assessment / Plan
Assessment / Plan
Acute shortness of breath posterior cardiac ablation-possible acute CHF decompensation
Patient presented with shortness of breath, some orthopnea, elevated BNP, and bibasilar crackles all concerning for acute CHF decompensation. Not hypoxic at the current time. Hemodynamically stable. In sinus rhythm. Nonspecific ST-T changes but
when compared to 11/24 no significant changes found on EKG. Chest x-ray not suggestive of CHF.
Echo done in the ER shows EF of 40 to 45% which is mild/moderately reduced, global hypokinesis, moderate AR, stage II diastolic dysfunction. It also shows enlarged right ventricular size and reduced right ventricular systolic function and moderate
TR. Patient was without his Eliquis periprocedure. CT chest PE study neg for thromboembolic disease.
Wt improved to 151 and patient states at home is normally 150 pounds.
-Cardiology recommend switch to oral Lasix. Patient says he is going to fast try dandelion leaf which has diuretic properties . Advised him to watch weight and if more than 3 pounds in a day or 5 pounds in a week to take Lasix to avoid another CHF
decompensation episode. 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
BL small pleural effusions associated with moderate interstitial airspace dz at basilar portions - clinically not acting like pneumonia . Afeb , normal WBC, no cough apart from PND and no recent respiratory symtoms . COVID/Flu swab neg. Procal
normal. No indication for abx .
Abnormal LFTs - doubt hepatic . Hyperbilirubinemia which is mild is total and indirect? Possible Gilbert's. Alkaline phosphatase normal. Bili normal now
Mild transaminitis elevation-again patient without GI symptoms. Could be mirroring Trop elevation from cardiac muscle injury from ablation. improved.
Abnormal troponins - unclear with the trend if it is related to recent cardiac ablation.No CP. Coming down now. Follow for now.
History of A-fib/a flutter status post ablation-sinus rhythm-continue with Eliquis;decreased dose of metoprolol due to low HR.
Full code
Medically stable for discharge home today.
More than 30 minutes spent in discharge including
Final examination of the patient
Summarizing hospital stay
Instructions for continuing care to all relevant caregivers
Preparation of discharge records, prescriptions, and referral forms
Total time spent (in minutes): 32
Anticipated Discharge: Today
Subjective/Interval History
-
Date of Service: November 28, 2024
Patient is feeling improved without shortness of breath. He is all dressed up to go home.
Denies any chest pain or palpitation.
Denies any dizziness.
Denies any cough, fever or chills.
Objective Data
-
Labs:
Laboratory Results
11/28/24
06:21
WBC 5.4
Hgb 11.7 L
Hct 34.8 L
Plt Count 113 L
Sodium 138
Potassium 3.8
Chloride 100
Carbon Dioxide 29
BUN 34 H
Creatinine 0.9
Glucose 93
Calcium 8.6
Total Bilirubin 1.3
AST 35
ALT 97 H
Alkaline Phosphatase 84
Vital Signs:
Vital Signs
Temp Pulse Resp BP Pulse Ox
97.7 F 49 16 107/58 100
11/28/24 11:36 11/28/24 11:36 11/28/24 11:36 11/28/24 11:36 11/28/24 11:36
I&O
11/27/24 11/28/24 11/29/24
06:59 06:59 06:59
Intake Total 660 / 660 1560 / 1560
Output Total 1700 / 1700
Balance -1040 / -1040 1560 / 1560
Review of Systems
-
Constitutional: Denies Fever
EENT: Denies Sore Throat
Abdomen/GI: Denies Abdominal Pain, Nausea or Vomiting
Physical Exam
-
General: No Apparent Distress
HEENT: Moist Mucous Membranes
Respiratory: Clear to Auscultation and Non Labored Respirations; Negative Accessory Resp Muscle Use
Cardiac: Regular Rhythm and S1/S2
GI: Soft
Neuro: AO x 3
Psych: Calm
Data Reviewed
-
Labs: Labs Reviewed by me
--- NOTE | 2024-11-28 12:16 | CM ---
CM following re: discharge planning.
Reviewed pt's chart, met with pt.
Discharge order noted. Pt is aware, expressed his agreement and he stated his spouse is coming to transport home. IMM reviewed, placed on chart, pt has a copy.
PT and OT evaluations noted - pt has no skilled PT/OT needs, independent with functional ability.
D/C plan: home no needs. Spouse to transport.
== END 2024-11-28 14:15 | disposition home or self-care (01) | DRG 292 ==
LOC: 4 EAST ACU 13:00
PROVIDERS: Physician Assistant; Registered Nurse; ADMITTING PHYSICIAN Internal Medicine; CONSULT PHYSICIAN Internal Medicine; EMERGENCY PHYSICIAN Emergency Medicine; FAMILY PHYSICIAN Internal Medicine
DX: I50.23 Acute on chronic systolic (congestive) heart failure (principal); I42.9 Cardiomyopathy, unspecified; I48.19 Other persistent atrial fibrillation; I48.92 Unspecified atrial flutter; I5A Non-ischemic myocardial injury (non-traumatic); I08.3 Combined rheumatic disorders of mitral, aortic and tricuspid valves; E87.5 Hyperkalemia; R00.1 Bradycardia, unspecified; Z11.52 Encounter for screening for COVID-19; Z79.01 Long term (current) use of anticoagulants; Z79.899 Other long term (current) drug therapy
CPT/HCPCS: 71046; 71275; 80053; 82248; 83735; 83880; 84145; 84484; 85025; 85027; 85347; 86900; 86901; 87502; 87811; 93005; 93306; 93655; 93656; 93657; 94640; 96374; 97161; 99285; C1730; C1759; C1760; C1766; C1892; C1894; Q9967

== ENCOUNTER → 2024-12-17 09:34 | Outpatient (REF) | payer MEDICARE, OTHER, SELFPAY | LOC: RCS 09:34 | PROVIDERS: ATTENDING PHYSICIAN Nurse Practitioner; FAMILY PHYSICIAN Internal Medicine | DX: I48.19 Other persistent atrial fibrillation (principal) | CPT/HCPCS: 93225; 93226 ==

== ENCOUNTER → 2025-02-26 09:16 | Outpatient (REF) | payer MEDICARE, OTHER, SELFPAY | LOC: RCS 09:16 | PROVIDERS: ATTENDING PHYSICIAN Nurse Practitioner; FAMILY PHYSICIAN Internal Medicine | DX: I48.19 Other persistent atrial fibrillation (principal); I50.22 Chronic systolic (congestive) heart failure | CPT/HCPCS: 93306 ==

== ENCOUNTER 2025-04-07 13:42 | Emergency (ER) | payer MEDICARE, OTHER, SELFPAY ==
[2025-04-07 13:45] VITALS: BP 99/64
--- NOTE | 2025-04-07 16:58 | ED.GENMED ---
History of Present Illness
General
Chief Complaint: Musculo-Skeletal Complaint
Source: patient
Exam Limitations: none
Time Seen by Provider: 04/07/25 16:16
Nursing documentation reviewed up to this point in time: agreed with
History of Present Illness
History of Present Illness:
patient is an 84-year-old male who presents to the ER complaining of left hip pain after fall. Patient does have previous hardware in place. [facility] several years ago. Patient denies
hitting his head. He is on Eliquis said he did not take his dose this morning. He did slip yesterday and had soreness to the hip but the actual pain did not start until the fall today. No other injuries.
Past History
Past History
ED Past Medical History: Arrthythmia
Social History
Tobacco: Non-smoker
Alcohol: None
Drug: None
Personal:
Review of Systems
Review of Systems
Allergies reviewed?: Yes
All Other Systems: ROS reviewed and negative except as documented in HPI and ROS
Constitutional: Reports no symptoms; Denies fever, fatigue or chills
Musculoskeletal: Reports other (left hip pain after fall )
Skin: Reports no symptoms
Neurological: Reports no symptoms; Denies headache (no head injury )
Psychiatric: Reports no symptoms
Phy Exam
General Physical Exam
General Presentation: no apparent distress
General age: appears stated age
General Skin: warm and dry
General Habitus: normal
General Mental: alert
General Hydration: appears well hydrated
Neurological Exam
Neurological Exam: alert and oriented x3
Musculoskeletal Exam
Musculoskeletal Exam: other (nml inspection to left hip tender to prox thigh pain with ROM + distal sensation, + distal pulses)
Skin Exam
Skin Exam: normal color and warm/dry
Psychiatric Exam
Psychiatric Exam: normal mood/affect
Course
Orders/Labs/Results
Orders:
Orders
04/07/25 13:45
Hip, Left 2-3 Views [CR Hip - LT w/wo Pel 2-3 Vw*] Urgent
Comment:
Reason For Exam: injury
Include a pelvis x-ray?: Yes
Vital Signs
Initial and Last Documented VS:
Initial Vital Signs
Temp Pulse Resp BP Pulse Ox
98.4 F 86 18 99/64 98
04/07/25 13:45 04/07/25 13:45 04/07/25 13:45 04/07/25 13:45 04/07/25 13:45
Last Documented Vital Signs
Temp Pulse Resp BP Pulse Ox
98.4 F 86 18 99/64 98
04/07/25 13:45 04/07/25 13:45 04/07/25 13:45 04/07/25 13:45 04/07/25 13:45
MDM/Problems Addressed
MDM/Problems Addressed:
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 Strong pulses. X-rays
reviewed with orthopedics on-call. As discussed with orthopedics patient is okay for discharge home with either crutches or wheelchair, nonweightbearing no splinting. Previous hip surgery was done in [facility]. Orthopedic does
recommend that patient follows back up with his treating surgeon to compare prior films however nothing further to do here in the ER.
I did reach out and speak with [facility] on-call Dr. Geoffrey Arroyo and reviewed x-ray findings with him. They will see patient in the office in the next week.
Plan to discharge patient with nonweightbearing wheelchair. Patient given copy of his x-rays. Patient is no acute distress wishes only to take Tylenol for pain he is on Eliquis I did instruct him to take Eliquis as previously prescribed.
*Radiology
Radiology exam reviewed: radiology read reviewed
*Pulse Oximetry
Patient hypoxic: no
*Critical Care Note
Total Time (30-74mins, 75-104mins- exclusive of procedures): Not Applicable
Patient Management
Discussion with other providers: Retirement Officer (ortho Dr Flower )
ED Attending Note
-
Portions of this chart may have been created with voice recognition software.� Occasional wrong word or��sound alike� substitutions may have occurred due to the inherent limitations of voice recognition software.
Discharge Plan
Departure
Patient Disposition: Home (Routine Discharge)
Date of Disposition: 04/07/25
Time of Disposition: 17:52
Patient with high blood pressure during this ER visit?: No
Condition: Fair
Covid-19: Not Applicable
Discharge Problem:
Closed hip fracture
Instructions: Hip fracture in adults - Discharge instructions
Prescriptions:
No Action
cyanocobalamin (vitamin B-12) [Vitamin B-12] 1,000 mcg Tablet
1,000 mcg PO DAILY
ascorbic acid (vitamin C) [Vitamin C] 500 mg Tablet
500 mg PO DAILY
vitamin B complex Tablet
1 tab PO DAILY
magnesium 250 mg Tablet
250 mg PO DAILY
cholecalciferol (vitamin D3) [Vitamin D3] 25 mcg (1,000 unit) Capsule
50 mcg PO DAILY
Eliquis 5 mg Tablet
5 mg PO BID
zinc acetate 50 mg (zinc) Capsule
50 mg PO DAILY
glucosam-sod chondro-vit C-matti Tablet
1 tab PO DAILY
[place] 3-6-9 1,200 mg Capsule
1 cap PO DAILY
polyethylene glycol 3350 17 gram Powder In Packet
17 g PO DAILY PRN (Reason: constipation) Qty: 14 0RF
furosemide 20 mg Tablet
20 mg PO DAILY Qty: 30 0RF
metoprolol succinate 25 mg Tablet Extended Release 24 Hr
25 mg PO HS Qty: 30 0RF
Rx Instructions:
Dose of your Metoprolol was decreased on this admission
Referrals:
Alexis Schwarz MD [Family Provider, Internal Medicine]
Activity Restrictions/Additional Instructions:
As discussed you have a fracture of the lesser trochanter and the greater trochanter. As discussed I did review these findings with our orthopedic doctor and also spoke with [facility] on-call.
This does not need surgery however no weightbearing. You are given a copy of your x-rays.
please use a wheelchair until seen and evaluated by orthopedics. Call your orthopedic doctor office tomorrow for an appointment soon as possible.
Interventions
Interventions:
*Risk Screen - Suicide Last Done: 04/07/25 13:45
*General Assessment Last Done: 04/07/25 13:45
*Neglect/Abuse Screening Last Done: 04/07/25 13:45
*ED- Fall Risk Assessment Last Done: 04/07/25 13:45
*ED COVID-19 Vaccine History Last Done: 04/07/25 13:45
ED-Musculoskeletal Assessment Last Done: 04/07/25 16:10
Discharge Date and Time
Print Language: SRI LANKAN
== END 2025-04-07 18:25 | disposition home or self-care (01) ==
LOC: EMR 13:42
PROVIDERS: EMERGENCY PHYSICIAN Emergency Medicine; FAMILY PHYSICIAN Internal Medicine
DX: S72.122A Displaced fracture of lesser trochanter of left femur, initial encounter for closed fracture (principal); W19.XXXA Unspecified fall, initial encounter; Z79.01 Long term (current) use of anticoagulants
CPT/HCPCS: 99283; 73502

== ENCOUNTER → 2025-09-15 08:53 | Outpatient (REF) | payer MEDICARE, OTHER, SELFPAY | LOC: RCS 08:53 | PROVIDERS: ATTENDING PHYSICIAN Internal Medicine Cardiovascular Disease; FAMILY PHYSICIAN Internal Medicine | DX: I35.1 Nonrheumatic aortic (valve) insufficiency (principal); I34.0 Nonrheumatic mitral (valve) insufficiency | CPT/HCPCS: 93306 ==